=== PATIENT | female | born 1990 | race Caucasian/White ===

== ENCOUNTER 2022-12-26 20:39 | Emergency (ER) | payer MEDICAID, OTHER ==
[~2022-12-26] VITALS: Ht 160 cm; Wt 55.3 kg
[~2022-12-26 20:39] MED LIST: ESCI10TA PO; FERR-142 PO; PREN-385 PO
[2022-12-26 20:47] VITALS: BP 119/77; PULSE 106; RESP 20; TEMP 98.4; O2SAT 100
[2022-12-26 21:55] VITALS: BP 119/77; PULSE 106; RESP 20; TEMP 98.4; O2SAT 100
== END 2022-12-26 21:55 | disposition home or self-care (01) ==
LOC: MED 20:39
DX: G43.909 Migraine, unspecified, not intractable, without status migrainosus (principal); Z79.899 Other long term (current) drug therapy
CPT/HCPCS: 99281